=== PATIENT | male | born 1955 | race Caucasian/White ===

== ENCOUNTER 2018-01-22 09:20 | Inpatient (IN) | payer OTHER ==
[~2018-01-22] VITALS: Ht 185.4 cm; Wt 83.2 kg
--- NOTE | ~2018-01-22 | PR ---
[place], [place] PROGRESS NOTE NAME: FANTASMA FREED [facility] #: [id number] UNIT #: [id number] ROOM: [facility] DOCTOR: ALAN ÁLVAREZ MD,VERONA BIRTHDATE: [birth year] DOS: 01/28/2018 SUBJECTIVE: The patient was noted awake and alert this morning, still getting lactulose for his hepatic encephalopathy. He has not been noted any symptoms of chest pain, coughing or sputum expectoration or symptoms of abdominal pain, but not noted any edema, clubbing, was not noted any symptoms of edema. The patient does not have any symptoms or findings of seizures. Remaining systems were reviewed, they were noted all negative. PHYSICAL EXAMINATION: VITAL SIGNS: Normal temperature, respiratory rate 22, heart rate 80, blood pressure 125/74, pulse ox saturation on room air 94% saturation. HEENT: No acute change. The patient was noted with bruising of the skin from previous fall, which has been improving. HEENT: They were noted normal. CARDIOVASCULAR: S1, S2 audible. LUNGS: Noted without wheeze or crackles. ABDOMEN: Soft, nontender. Bowel sounds present. EXTREMITIES: No edema. MUSCULOSKELETAL: Without acute deformities. CENTRAL NERVOUS SYSTEM: Cranial nerves 2-12 intact. LABORATORY DATA: CBC: WBC count 3.8, hemoglobin 12.6, hematocrit 39.0, platelet count 50,000. The ammonia level 79. BMP of the patient noted normal BUN and creatinine. IMPRESSION: 1. The patient who has been currently noted with hyperammonemia secondary to hepatic encephalopathy. 2. Pulmonary nodules, which are noted in upper lung villagomez identified, previously in 05/2017. The patient has been seen by a baseball inspector and repairer as the record become available of patient per Dr. Sharma. The patient was supposed to have a navigational bronchoscopy done and EBUS, bronchoscopy to be done for the upper lung pulmonary nodules. The pulmonary nodules were described in the upper portion of the lung; however, I am not sure the patient ever had any biopsy done so far. 3. The patient with a known history of alcoholic liver cirrhosis with history of past other problem related to his chronic alcohol use and dependence. 4. Debility. 5. Thrombocytopenia secondary to liver cirrhosis. 6. Leukopenia secondary to liver cirrhosis as well. 7. History of nicotine use. PLAN OF MANAGEMENT: At this time, the patient has been improving, currently with current medical management. He would not require any further assessment of the pulmonary nodule during the inpatient. The outpatient assessment has planned for this patient to be done by the baseball inspector and repairer or as an outpatient if patient prefers to get it done through my office. Continue to maximize his oral medical status. Physical therapy has been started. Other plan of management [place], [place] PROGRESS NOTE NAME: FANTASMA FREED UNIT #: [id number] ROOM: [facility] DOCTOR: VERONA HERNANDEZ MD BIRTHDATE: [birth year] care to be continued as ordered. VERONA PHILLIPS MD CM:PNTRANS [id number] VERONA ÁLVAREZ MD 01/28/182024 interface
--- NOTE | ~2018-01-22 | CON ---
[place], [place] REPORT OF CON[facility]ATION [id number] UNIT #: [id number] ROOM: [facility] DOCTOR: ZUHAIR FOURNIER MD BIRTHDATE: [birth year] DOS: 01/29/2018 GASTROINTESTINAL CONSULTATION REPORT HISTORY OF PRESENT ILLNESS: A 62-year-old patient who has presented with history of chronic drinking of half a gallon of vodka per day, falling episode, sustaining multiple hematomas, and has been kept in ICU detoxing and being assisted. He is totally dependent on nursing and medical care at this time. At the time of admission, however, his INR was 1.3, PT was 14. His comprehensive metabolic panel and electrolytes were balanced. Total bilirubin was 2.5. GOT/GPT of 72/35. Alkaline phosphatase 299. ETOH level was 131. Drug screening was negative. His CBC differential was thrombocytopenic at 29 and H and H of 11 and 34 with macrocytic indices. The patient's serum ammonia level has been greater than 100 and he has been given lactulose 4 times a day 30 grams, and despite the fact that he has had severe diarrhea, he is remaining encephalopathic. Finally, his serum ammonia level responded and drops to about 70 and we have been asked for assessment of the patient regarding encephalopathy and serum ammonia concerns. PAST MEDICAL HISTORY: History of chronic alcoholism, degenerative joint disease, essential hypertension, cirrhotic liver, COPD, and seizure disorders. PAST SURGICAL HISTORY: Cervical fusion. SOCIAL HISTORY: Heavy alcohol consumption of half a gallon of vodka per day and nicotine as well. MEDICATIONS: List has been reviewed. ALLERGIES: PENICILLIN. REVIEW OF SYSTEMS: Cannot be obtained from him meaningfully. PHYSICAL EXAMINATION: GENERAL: Status post fall, bedridden, hematomas on bilateral orbits, face, arms, and extremities were noticed. HEENT: Otherwise, head is normocephalic and nontraumatic except hematomas formation as well as left eye. Mouth free of aphthae ulcer or thrush. NECK: Supple. No thyromegaly, no cervical lymphadenopathy. CHEST: Symmetric anatomy, equal expansion. No wheeze, no rhonchi. HEART: Normal sinus rhythm. No gallop, no murmur. ABDOMEN: Obese, soft. No hepato-organomegaly can be elicited. EXTREMITIES: Hematoma subcutaneously on the arm, forearm as well as stasis dermatitis. NEUROLOGIC: Alertness and orientation cannot be assessed. DIAGNOSTIC DATA: Labs reviewed, records reviewed. IMPRESSION: Alcohol-induced cirrhosis, falling episode secondary to encephalopathy. However, all the presentations are secondary to sequelae of [place], [place] REPORT OF CONSULTATION NAME: FANTASMA FREED UNIT #: [id number] ROOM: [facility] DOCTOR: IRLANDA MATIAS,ZUHAIR BIRTHDATE: [birth year] alcoholism including cirrhosis, which we expect in future or at the present time to have ascites fluid, portal hypertension, possible esophageal varicosity, thrombocytopenia, macrocytic anemia, and hyperammonemia, all have been expected. PLAN: At the present time detox and correction of all above is in progress; however, he is extremely hypernatremic, hyperchloremic at 153/126 respectively. D5W and hydration to prevent renal insult in progress. At this stage, since his ammonia level is not responding to lactulose even maximal dose, we are going to start him on Xifaxan 550 mg 1 b.i.d. to see if he can achieve further better ammonia level. On the other hand, we do not need to follow serum ammonia daily because clinically it does not make any difference, we only need periodic rarely and if it is needed weekly. As long as the patient is clinically responding to orientation and lack of encephalopathy, then we are safe. Diet ad blanca. His H and H have been fortunately stable. His thrombocytopenia of severe degree is gradually improving from 20s to 30s. Continue supportive management. ZUHAIR FOURNIER MD CM:CONSTR:REPORT OF CONSULTATION 1929 01/30/18 0455 interface
--- NOTE | ~2018-01-22 | PR ---
[place], [place] PROGRESS NOTE [id number] #: [id number] ROOM: 409 DOCTOR: ALAN ÁLVAREZ MD,VERONA BIRTHDATE: [birth year] DOS: 01/26/2018 SUBJECTIVE: The patient noted comfortable at this time without any acute distress. He has not been noted any ongoing acute new complaints at the present time. Denies symptoms of coughing, chest pain or sputum expectoration. The patient noted more awake and alert, getting lactulose. Reduction in the ammonia level was noted. He does not have any symptoms of hemoptysis, fever or chills. OBJECTIVE: VITAL SIGNS: Normal temperature, respiratory rate 15, heart rate of 80, blood pressure 130/85, pulse ox saturation on room air 98% saturation. HEENT: No acute change. NECK: Supple. CARDIOVASCULAR: S1, S2 is audible. LUNGS: Without any wheeze or crackles. ABDOMEN: Soft, nontender. Bowel sounds present. EXTREMITIES: No acute edema. IMPRESSION: 1. The patient with hepatic encephalopathy, pancytopenia, which has been improving. The WBC count noted currently normal, platelet count was also resolving. 2. Pulmonary nodules, patient at this time unknown to medical record which has been asked from the primary care attending was still pending. PLAN OF MANAGEMENT: Continue the patient's current plan of therapy as in progress. Continue on supportive plan of therapy care and other medical management. Usual care. VERONA PHILLIPS MD CM:JORGE [id number] VERONA ÁLVAREZ MD 02/25/18 0751 interface
--- NOTE | ~2018-01-22 | PR ---
[place], [place] PROGRESS NOTE NAME: FANTASMA FREED UNIT #: [id number] ROOM: 409 DOCTOR: VERONA HERNANDEZ MD BIRTHDATE: [birth year] DOS: 01/25/2018 SUBJECTIVE: The patient has been currently treated with hepatic encephalopathy with the history of advanced liver cirrhosis. He has been noted significant elevation of ammonia level yesterday of 102, started on lactulose with the reduction in the ammonia level noted today at 79. He remains awake this morning without any distress, chest pain, or sputum expectoration. OBJECTIVE: VITAL SIGNS: Normal temperature, respiratory rate 20, heart rate 75, and blood pressure 158/88. The pulse oxygen saturation of the patient noted on room air 94% saturation. HEENT: Examination shows head was atraumatic. Eyes nonicterus. NECK: Supple. CARDIOVASCULAR: S1 and S2 is audible. LUNGS: Clear to auscultation bilaterally except [id number] decreased breath sounds bilaterally. ABDOMEN: Soft and nontender. EXTREMITIES: No edema. LABORATORY DATA: CBC: WBC count 4.7, hemoglobin 12.5, MCV 102, and platelet count 31,000. CMP this morning, normal BUN and creatinine. IMPRESSION: The patient with hepatic encephalopathy. The patient with pancytopenia, liver cirrhosis. The platelet count was noted better from yesterday. There were no signs of active bleeding. Pulmonary nodule predominantly in the upper lung, etiology unclear, medical records primary care physician remains pending. PLAN OF MANAGEMENT: No changes in plan of care from Pulmonary standpoint. Continue to treat the hepatic encephalopathy with current medical treatment. Other supportive therapy, plan of management, care plan and treatment as in progress. [place], [place] PROGRESS NOTE NAME: FANTASMA FREED UNIT #: [id number] ROOM: 409 DOCTOR: VERONA HERNANDEZ MD BIRTHDATE: [birth year] VERONA PHILLIPS MD CM:PNTRANS [id number] VERONA ÁLVAREZ MD 02/25/18 0750 interface
--- NOTE | ~2018-01-22 | PR ---
[place], [place] PROGRESS NOTE NAME: FANTASMA FREED UNIT #: [id number] ROOM: [facility] DOCTOR: ALAN ÁLVAREZ MD,VERONA BIRTHDATE: [birth year] DOS: 01/29/2018 PULMONARY PROGRESS NOTE SUBJECTIVE: The patient has been noted comfortable at this time and participating in physical therapy. There are no symptoms of shortness of breath. Confusion is resolving. Ammonia level is gradually improving with use of lactulose. OBJECTIVE: VITAL SIGNS: Normal temperature, respiratory rate 14, heart rate 82, blood pressure 111/71. Pulse oxygen saturation on room air is 93% saturation. HEENT: No acute change. NECK: Supple. CARDIOVASCULAR: S1, S2 audible. LUNGS: Noted without any wheezing or crackles. ABDOMEN: Soft, nontender. EXTREMITIES: No edema. IMPRESSION: 1. Resolving hepatic encephalopathy with stable respiratory status. 2. Bilateral upper lung pulmonary nodules. The patient will need further investigation as an outpatient by his primary feather mixer. PLAN OF MANAGEMENT: Continue maximizing the medical management of the hepatic encephalopathy. Monitor ammonia level. Continue physical therapy, other plan of care and treatment. VERONA PHILLIPS MD CM:JORGE [id number] VERONA ÁLVAREZ MD 01/29/18 1320 interface
--- NOTE | ~2018-01-22 | CON ---
[place], [place] REPORT OF CONSULTATION NAME: FANTASMA FREED UNIT #: [id number] ROOM: [facility] DOCTOR: VERONA HERNANDEZ MD BIRTHDATE: [birth year] DOS: 01/24/2018 PULMONARY CONSULTATION EVALUATION AND MANAGEMENT CONSULTATION REQUESTED BY: Hospitalist Service. REASON FOR CONSULTATION: Assessment of current pulmonary nodules. HISTORY OF PRESENT ILLNESS: This is a 62-year-old white male who has been noted with frequent fall at home. The patient has been admitted to the hospital on 01/22/2018. He has been admitted to the hospital after a fall. The patient fell forward as well as also noted previous multiple falls at home. EMS called. The patient brought to the hospital. He has been noted drinking half gallon of vodka per day. He has been admitted to the hospital. The patient currently treated for the alcohol withdrawal and as well as encephalopathy as well related to the alcohol withdrawal. The patient has been denying any symptoms of shortness of breath, coughing, wheezing or chest pain. Denies symptoms of hemoptysis. He had a CT scan of the chest that was done this morning reported with findings of pulmonary nodules. I was asked to see the patient for that reason. REVIEW OF SYSTEMS: CONSTITUTIONAL: Fatigue and tiredness noted without any symptoms of fever or chills. EYES: Denies any burning, redness, or tenderness. EARS, NOSE, THROAT SYMPTOMS: Denies sore throat, hoarseness, otalgia, postnasal drainage or epistaxis. CARDIOVASCULAR: Denies angina pain, edema of the pain of the lower extremities. GASTROINTESTINAL: Denies any dysphagia, nausea, vomiting, diarrhea, abdominal pain, hematemesis, melena, or hematochezia. GENITOURINARY: No dysuria, suprapubic pain, hematuria. MUSCULOSKELETAL: Denies joint pain, redness, or tenderness. SKIN: Noted bruising on the face as well as in the side of the back from recent several falls. CENTRAL NERVOUS SYSTEM: Noted with the difficulty of keeping balance for this patient at home frequent falls, but there were no focal neurologic deficits reported. Denies any tingling sensation of the extremities. Remaining review of the patient, they were noted limited, but negative. PAST MEDICAL HISTORY: 1. History of pulmonary nodule, which was known in 3 years, has been assessed by a physician and also followed up by primary care physician, Dr. Durham in [place], [place]. 2. History of chronic alcohol dependence. 3. History of degenerative arthritis of the cervical spine. 4. Essential hypertension. 5. History of liver cirrhosis, most likely secondary to chronic alcohol dependence. 6. History of COPD. 7. History of seizures. [place], [place] REPORT OF CONSULTATION NAME: FANTASMA FREED UNIT #: [id number] ROOM: [facility] DOCTOR: ALAN ÁLVAREZ MD,[facility] BIRTHDATE: [birth year] PAST SURGICAL HISTORY: Reported as a cervical fusion surgery. SOCIAL HISTORY: The patient lives by himself at home. He has been noted with history of chronic alcohol use. 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 FAMILY HISTORY: Reported as noncontributory by the patient. HOME MEDICATIONS: Listed at time of admission, Proventil HFA, doxepin, Lexapro, Feosol, Lasix, gabapentin, lactulose, Keppra, melatonin, Lopressor, Remeron, multivitamin, Protonix, thiamine, Spiriva, and vitamin B complex. DRUG ALLERGY. TO PENICILLINS. PHYSICAL EXAMINATION: GENERAL: This is a 62-year-old obese patient who has been currently lying in the bed, appears to be awake, alert, oriented, and able to give history. VITAL SIGNS: Height of 6 feet 1 inch, weight of 183 pounds, BMI 24. Temperature noted normal in the last 48 hours, respiratory rate range between 18-20. The heart rate ranging between 120 on admission, currently 80, blood pressure 146-91-160/91. Intake of 800, the output of 1.204 liters. Pulse oxygen saturation on room air was noted at rest is 96-98% saturation. HEENT: The patient noted with some areas of current acute injury bruising noted in the facial area for this patient. There was no open wound. Head was noted atraumatic. Eyes were noted mild icterus. Oral mucosa was moist. CARDIOVASCULAR: S1, S2 audible. LUNGS: The patient was noted without any wheezing or crackles at the present time. ABDOMEN: Mild distention was noted. There was no tenderness. Bowel sounds present. EXTREMITIES: Without any acute edema. VISIBLE SKIN: Beside the bruising which are noted in the face and the right posterior chest wall bruise noted. No open area. No rashes or lesions. MUSCULOSKELETAL: No deformities. CENTRAL NERVOUS SYSTEM: Grossly intact. LABORATORY DATA: CMP on 01/22/2018 on admission noted with normal BUN and creatinine and other electrolytes. Bilirubin noted 2.5, albumin 2.8, AST 72, alkaline phosphatase of 298 and alcohol level noted at that time elevated at 131. The CBC on 01/22/2018, WBC count 3.7, hemoglobin 11.3, hematocrit 34.6, platelet count of 29,000. The MCV noted 102. Urine drug screen on admission was noted as negative. CT scan of head without contrast does not show acute intracranial abnormalities. Low attenuation of white matter noted bilaterally. Age indeterminate commonly seen in the small vessel ischemic changes. CMP yesterday, normal BUN and creatinine. Lipid noted mildly elevated at 501. CBC yesterday, hemoglobin 10, hematocrit 31, WBC count 2.8 and platelet count of 21,000. CBC of this morning, WBC count 2.9, hemoglobin 11.5, hematocrit 34.7, platelet count 23,000. BMP this morning, the patient, normal BUN and creatinine and other electrolytes. [place], [place] REPORT OF CONSULTATION NAME: FANTASMA FREED UNIT #: [id number] ROOM: [facility] DOCTOR: ALAN ÁLVAREZ MD,[facility] BIRTHDATE: [birth year] IMAGING STUDIES: Chest x-ray that was done this morning was suggestive of evidence of pulmonary nodule upper lungs. CT scan of the chest were suggestive for further assessment. The CT scan of the chest that was done without contrast reviewed evidence of several pulmonary nodules, which are noted mostly in the upper portion of the lungs bilaterally appears to be mostly smooth. Changes of centrilobular emphysema was noted in the upper lung as well. A small area of atelectasis noted in the right lower lung with minimal pleural effusions. There was no evidence of consolidation. Mediastinal structure was also reviewed does not show any significant abnormal pathological lymphadenopathy. IMPRESSION: 1. The patient who has been currently admitted to the hospital after a fall with alcohol intoxication and frequent fall at home related to alcohol use or peripheral neuropathy or drug interaction with alcohol use would be likely cause. 2. The patient's pancytopenia, most likely due to underlying liver cirrhosis. 3. Bilateral pulmonary nodules, which were noted in the upper as per history described by the patient chronic, but I do not medical record to review for the patient. Prior to initiating further workup, the medical records will be obtained from the office of primary care physician or other physician who has assessed the patient's current pulmonary nodules. The differential of sarcoidosis would be considered with hypersensitive pneumonitis; however, malignancy remains in consideration if the nodules noted currently new with history of longstanding tobacco use. 4. Small pleural fluid was also noted related to ongoing current illness. There were no signs of acute sepsis or pneumonia. 5. Abnormal liver function secondary to the current liver cirrhosis. 6. Alcohol withdrawal, currently treated appropriately with the medication without any signs of agitation and disorientation at the present time. 7. History of seizure without any seizure activity. PLAN OF MANAGEMENT: Obtain the medical record from the office of primary care physician. Monitor pancytopenia. There was no active bleeding or severe anemia requiring any blood transfusion at the present time. GI consultation might be beneficial. Tobacco cessation counseling was done with the patient. Bronchodilator to help mobilize secretions. Avoid excessive sedation for this patient. In case of excessive sedation, the patient might require intubation and mechanical ventilation. Most of the medication has been resumed. Management of alcohol withdrawal symptoms according to the needs. Usual care, other supportive plan of management and therapies. The patient might require detoxification from the alcohol once discharged from the hospital or rehabilitation placed by the inpatient and outpatient. After viewing the medical record, which will be obtained from the office of primary care physician tomorrow, further recommendation will be added or suggested after that. The assessment and management has been discussed with primary care attending, ____. [place], [place] REPORT OF CONSULTATION NAME: FANTASMA FREED UNIT #: [id number] ROOM: [facility] DOCTOR: VERONA HERNANDEZ MD BIRTHDATE: [birth year] VERONA PHILLIPS MD CM:CONSTR:REPORT OF CONSULTATION 1441 01/25/18 0213 interface
--- NOTE | ~2018-01-22 | PR ---
[place], [place] PROGRESS NOTE NAME: FANTASMA FREED UNIT #: [id number] ROOM: [facility] DOCTOR: ALAN ÁLVAREZ MD,VERONA BIRTHDATE: [birth year] DOS: 01/30/2018 SUBJECTIVE: The patient has been noted comfortable at this time, resting in the bed, still noted with hepatic encephalopathy as well. He has been complaining of excessive urination and diarrhea. Denies symptoms of chest pain or hemoptysis or other acute symptoms. OBJECTIVE: VITAL SIGNS: For the patient, which has been recorded showed the temperature noted as normal, respiratory rate 12, heart rate 73, blood pressure 118/63. Pulse ox saturation on room air 96% saturation. HEENT: No acute change. NECK: Supple. CARDIOVASCULAR: S1, S2 is audible. LUNGS: Without any wheezes or crackles. ABDOMEN: Soft. EXTREMITIES: Without any acute edema. IMPRESSION: Bilateral pulmonary nodules in the upper lung at this time. Possibility of sarcoidosis, other abnormalities with pancytopenia, liver cirrhosis. Other medical problems including metabolic encephalopathy. PLAN OF MANAGEMENT: No changes in the plan for the patient from the pulmonary standpoint. Continue current therapy, plan of management as in progress. Further workup as an outpatient for this patient to be done by the primary security site supervisor in [place], [place]. Pulmonary will sign off the day. There were no acute active respiratory symptoms ongoing for the patient requiring further assessment. VERONA PHILLIPS MD CM:PNTRANS [id number] VERONA ÁLVAREZ MD 01/30/18 1546 interface
--- NOTE | ~2018-01-22 | PR ---
[place], [place] PROGRESS NOTE NAME: FANTASMA FREED UNIT #: [id number] ROOM: [facility] DOCTOR: ALAN ÁLVAREZ MD,VERONA BIRTHDATE: [birth year] DOS: 01/27/2018 SUBJECTIVE: The patient noted comfortable at this time, resting on the bed without any acute distress. He has been participating with physical therapy. Shortness of breath remains stable. MENTAL STATUS: The patient was also noted adequate and the patient able to understand the question and answer them quickly. The medical record from primary care attending for the patient office was still not received and pending. OBJECTIVE: VITAL SIGNS: Normal temperature, respiratory rate 14, heart rate of 84 and blood pressure 124/84. Pulse ox saturation on room air 95% saturation. HEENT: No acute change. NECK: Supple. CARDIOVASCULAR: S1, S2 audible. LUNGS: Without any wheeze or crackles. ABDOMEN: Soft, nontender. EXTREMITIES: No edema. IMPRESSION: 1. The patient with hepatic encephalopathy with cirrhosis of the liver, pancytopenia, bilateral pulmonary nodules for this patient predominantly in the upper lungs 2. Coagulopathy secondary to liver dysfunction. 3. Thrombocytopenia, resolving. WBC count was currently noted as normal. PLAN OF TREATMENT: No changes in the plan of care at this time. Await for the results of the patient for the assessment pulmonary nodules. In addition, treatment changes or recommendation be necessary will be done after review of the medical records when becomes available from primary care physician's office. VERONA PHILLIPS MD CM:PNTRANS [id number] VERONA ÁLVAREZ MD 01/27/18 1220 interface
[2018-01-22 10:36] VITALS: BP 159/86
[2018-01-22 10:45] VITALS: BP 159/86
[2018-01-22] MEDS ORDERED: FEROSUL325 MG PO (11:00)
[2018-01-22] MEDS ORDERED: LEXAPRO20 MG PO (11:00)
[2018-01-22] MEDS ORDERED: KEPPRA500 MG PO (11:01)
[2018-01-22] MEDS ORDERED: GABAPENTIN400 MG PO (11:01)
[2018-01-22] MEDS ORDERED: FUROSEMIDE20 M1 PO (11:01)
[2018-01-22] MEDS ORDERED: LOPRESSOR25 MG PO (11:02)
[2018-01-22] MEDS ORDERED: MIRTAZAPINE15 M2 PO (11:02)
[2018-01-22] MEDS ORDERED: PANTOPRAZOLE SO40 MG PO (11:03)
[2018-01-22] MEDS ORDERED: VITAMIN B150 MG PO (11:04)
[2018-01-22] MEDS ORDERED: VITAMIN B COMP1 EAC1 PO (11:04)
[2018-01-22] MEDS ORDERED: DOXEPIN HCL75 MG PO (11:04)
[2018-01-22] MEDS ORDERED: CENTRUM SILVER1 EACH PO (11:05)
[2018-01-22] MEDS ORDERED: MELATONIN1 MG PO (11:06)
[2018-01-22] MEDS ORDERED: PROVENTIL HFA6.7 GM INH (11:06)
[2018-01-22] MEDS ORDERED: LACTULOSE10 GM/15 M PO (11:07)
[2018-01-22] MEDS ORDERED: SPIRIVA18 MCG PO (11:08)
[2018-01-22 11:20] LABS: HEMATOCRIT 34.6 % (42.0-52.0); HEMOGLOBIN 11.3 g/dl (14.0-18.0); MEAN CELL VOLUME 102.1 fl (80.0-94.0); MEAN CORPUSCULAR HGB 33.3 pg (27.0-31.0); MEAN CORPUSCULAR HGB CONC 32.7 g/dl (33.0-37.0); MEAN PLATELET VOLUME 10.9 fl (9.6-12.3); RED BLOOD COUNT 3.39 10*6/uL (4.50-5.90); RED CELL DISTRI WIDTH 17.9 % (0-14.5); WHITE BLOOD COUNT 3.7 10*3/uL (4.8-10.8)
[2018-01-22 11:26] LABS: INTERNATIONAL NORM RATIO 1.3 (2.0-3.5)
[2018-01-22 11:32] LABS: ALBUMIN 2.8 gm/dl (3.1-4.5); ALKALINE PHOSPHATASE 298 U/L (45-117); BUN 11 mg/dl (7-24); CHLORIDE 110 mmol/L (98-107); POTASSIUM 4.2 mmol/L (3.5-5.1); SGOT/AST 72 IU/L (3-35); SGPT/ALT 35 U/L (12-78); SODIUM 143 mmol/L (136-145); TOTAL PROTEIN 8.2 gm/dL (6.4-8.2)
[2018-01-22 11:40] LABS: TOTAL CELLS COUNTED 100 #CELLS
[2018-01-22 11:41] LABS: PLATELET SUFFICIENCY LOW (NORMAL)
[2018-01-22 11:45] LABS: PLATELET COUNT AUTOMATED 29 10*3/uL (130-400)
[2018-01-22 12:00] VITALS: BP 160/80
[2018-01-22 16:00] VITALS: BP 150/73
[2018-01-22 20:00] VITALS: BP 105/55
[2018-01-22 22:24] LABS: BILIRUBIN NEGATIVE (NEGATIVE); BLOOD NEGATIVE (NEGATIVE); CLARITY CLEAR (CLEAR); COLOR YELLOW (YELLOW); GLUCOSE NEGATIVE (NEGATIVE); KETONE TRACE (NEGATIVE); LEUKO ESTERASE NEGATIVE (NEGATIVE); NITRITE NEGATIVE (NEGATIVE); SPECIFIC GRAVITY 1.015 (1.005-1.030)
[2018-01-22 22:32] LABS: URINE AMPHETAMINES < 1000 (1000ng/ml); URINE BARBITURATES < 200 (200ng/ml); URINE BENZODIAZEPINES < 200 (200ng/ml); URINE CANNABINOIDS (THC) < 50 (50ng/ml); URINE COCAINE < 300 (300ng/ml); URINE METHADONE < 300 (300ng/ml); URINE OPIATES < 300 (300ng/ml); URINE PHENCYCLIDINE < 25 (25ng/ml)
[2018-01-22 22:51] LABS: RBC 0-2 rbc/hpf (0-2); WBC 0-2 wbc/hpf (0-5)
[2018-01-23] VITALS: BP 124/68
[2018-01-23 04:00] VITALS: BP 143/87
[2018-01-23 06:07] LABS: HEMOGLOBIN 10.5 g/dl (14.0-18.0); MEAN CORPUSCULAR HGB 34.2 pg (27.0-31.0); MEAN CORPUSCULAR HGB CONC 33.9 g/dl (33.0-37.0); RED BLOOD COUNT 3.07 10*6/uL (4.50-5.90); RED CELL DISTRI WIDTH 17.3 % (0-14.5); WHITE BLOOD COUNT 2.8 10*3/uL (4.8-10.8)
[2018-01-23 06:25] LABS: ALBUMIN 2.5 gm/dl (3.1-4.5); ALKALINE PHOSPHATASE 267 U/L (45-117); BUN 10 mg/dl (7-24); CHLORIDE 107 mmol/L (98-107); CREATININE 0.81 mg/dL (0.70-1.30); LIPASE 501 U/L (73-393); PHOSPHOROUS 2.2 mg/dL (2.5-4.9); POTASSIUM 3.7 mmol/L (3.5-5.1); SGOT/AST 64 IU/L (3-35); SGPT/ALT 29 U/L (12-78); SODIUM 139 mmol/L (136-145); TOTAL PROTEIN 7.1 gm/dL (6.4-8.2)
[2018-01-23 06:34] LABS: ATYPICAL LYMPHS 1 % (0-0); TOTAL CELLS COUNTED 100 #CELLS
[2018-01-23 06:35] LABS: PLATELET SUFFICIENCY LOW (NORMAL); ROULEAUX SLIGHT
[2018-01-23 06:36] LABS: PLATELET COUNT AUTOMATED 21 10*3/uL (130-400)
[2018-01-23 07:11] LABS: VITAMIN D, 25-HYDROXY 23.4 ng/mL (30-100)
[2018-01-23 08:00] VITALS: BP 148/98
[2018-01-23 12:00] VITALS: BP 157/85
[2018-01-23 16:00] VITALS: BP 160/91
[2018-01-23 20:00] VITALS: BP 134/93
[2018-01-24] VITALS: BP 163/85
[2018-01-24 04:00] VITALS: BP 142/88
[2018-01-24 06:04] LABS: HEMATOCRIT 34.7 % (42.0-52.0); HEMOGLOBIN 11.5 g/dl (14.0-18.0); MEAN CELL VOLUME 101.8 fl (80.0-94.0); MEAN CORPUSCULAR HGB 33.7 pg (27.0-31.0); MEAN CORPUSCULAR HGB CONC 33.1 g/dl (33.0-37.0); MEAN PLATELET VOLUME 12.4 fl (9.6-12.3); RED BLOOD COUNT 3.41 10*6/uL (4.50-5.90); RED CELL DISTRI WIDTH 16.8 % (0-14.5); WHITE BLOOD COUNT 2.9 10*3/uL (4.8-10.8)
[2018-01-24 06:17] LABS: BUN 8 mg/dl (7-24); CHLORIDE 109 mmol/L (98-107); CREATININE 0.81 mg/dL (0.70-1.30); POTASSIUM 3.8 mmol/L (3.5-5.1); SODIUM 138 mmol/L (136-145)
[2018-01-24 06:28] LABS: BASOPHILS 1 % (0-1); PLATELET SUFFICIENCY LOW (NORMAL); ROULEAUX SLIGHT; TOTAL CELLS COUNTED 100 #CELLS
[2018-01-24 06:30] LABS: PLATELET COUNT AUTOMATED 23 10*3/uL (130-400)
[2018-01-24 08:00] VITALS: BP 152/86
[2018-01-24 12:00] VITALS: BP 146/91
[2018-01-24 16:00] VITALS: BP 152/81
[2018-01-24 20:03] VITALS: BP 152/81
[2018-01-25] VITALS: BP 150/90
[2018-01-25 04:05] VITALS: BP 148/93
[2018-01-25 06:17] LABS: HEMATOCRIT 37.8 % (42.0-52.0); HEMOGLOBIN 12.5 g/dl (14.0-18.0); MEAN CELL VOLUME 102.2 fl (80.0-94.0); MEAN CORPUSCULAR HGB 33.8 pg (27.0-31.0); MEAN CORPUSCULAR HGB CONC 33.1 g/dl (33.0-37.0); MEAN PLATELET VOLUME 11.8 fl (9.6-12.3); RED CELL DISTRI WIDTH 17.2 % (0-14.5); WHITE BLOOD COUNT 4.7 10*3/uL (4.8-10.8)
[2018-01-25 06:18] LABS: ALBUMIN 2.7 gm/dl (3.1-4.5); ALKALINE PHOSPHATASE 306 U/L (45-117); BUN 10 mg/dl (7-24); CHLORIDE 110 mmol/L (98-107); CREATININE 0.83 mg/dL (0.70-1.30); POTASSIUM 3.8 mmol/L (3.5-5.1); SGOT/AST 60 IU/L (3-35); SGPT/ALT 36 U/L (12-78); SODIUM 142 mmol/L (136-145); TOTAL PROTEIN 7.9 gm/dL (6.4-8.2)
[2018-01-25 06:22] LABS: PLATELET COUNT AUTOMATED 31 10*3/uL (130-400)
[2018-01-25 07:11] LABS: BASOPHILS 1 % (0-1); PLATELET SUFFICIENCY LOW (NORMAL); POLYCHROMASIA SLIGHT; TOTAL CELLS COUNTED 100 #CELLS
[2018-01-25 08:00] VITALS: BP 158/88
[2018-01-25 11:35] VITALS: BP 143/89
[2018-01-25 16:00] VITALS: BP 127/82
[2018-01-25 20:00] VITALS: BP 100/65
[2018-01-26] VITALS: BP 120/75
[2018-01-26 04:00] VITALS: BP 130/85
[2018-01-26 04:57] LABS: BUN 16 mg/dl (7-24); CHLORIDE 113 mmol/L (98-107); CREATININE 1.14 mg/dL (0.70-1.30); POTASSIUM 3.6 mmol/L (3.5-5.1); SODIUM 146 mmol/L (136-145)
[2018-01-26 05:48] LABS: HEMATOCRIT 38.6 % (42.0-52.0); HEMOGLOBIN 12.6 g/dl (14.0-18.0); MEAN CELL VOLUME 103.8 fl (80.0-94.0); MEAN CORPUSCULAR HGB 33.9 pg (27.0-31.0); MEAN CORPUSCULAR HGB CONC 32.6 g/dl (33.0-37.0); MEAN PLATELET VOLUME 10.2 fl (9.6-12.3); RED BLOOD COUNT 3.72 10*6/uL (4.50-5.90); RED CELL DISTRI WIDTH 17.4 % (0-14.5); WHITE BLOOD COUNT 5.4 10*3/uL (4.8-10.8)
[2018-01-26 06:02] LABS: PLATELET COUNT AUTOMATED 48 10*3/uL (130-400)
[2018-01-26 06:47] LABS: PLATELET SUFFICIENCY LOW (NORMAL); TOTAL CELLS COUNTED 100 #CELLS
[2018-01-26 08:00] VITALS: BP 105/81
[2018-01-26 12:00] VITALS: BP 96/56
[2018-01-26 16:00] VITALS: BP 106/63
[2018-01-26 20:00] VITALS: BP 98/74
[2018-01-27] VITALS: BP 119/69
[2018-01-27 04:00] VITALS: BP 110/80
[2018-01-27 05:47] LABS: BASO # 0.1 10*3/uL (0.0-0.1); EOS # 0.1 10*3/uL (0.0-0.4); EOS % 2.5 % (1.0-4.0); HEMATOCRIT 37.5 % (42.0-52.0); HEMOGLOBIN 12.5 g/dl (14.0-18.0); LYMPH # 0.9 10*3/uL (1.3-4.4); LYMPH % 17.2 % (27.0-41.0); MEAN CORPUSCULAR HGB 34.3 pg (27.0-31.0); MEAN CORPUSCULAR HGB CONC 33.3 g/dl (33.0-37.0); MONO # 0.6 10*3/uL (0.1-1.0); MONO % 11.8 % (3.0-9.0); NEUT # 3.5 10*3/uL (2.3-7.9); NEUT % 67.3 % (47.0-73.0); PLATELET COUNT AUTOMATED 54 10*3/uL (130-400); RED BLOOD COUNT 3.64 10*6/uL (4.50-5.90); RED CELL DISTRI WIDTH 17.6 % (0-14.5); WHITE BLOOD COUNT 5.2 10*3/uL (4.8-10.8)
[2018-01-27 05:56] LABS: BUN 19 mg/dl (7-24); CHLORIDE 116 mmol/L (98-107); CREATININE 1.16 mg/dL (0.70-1.30); POTASSIUM 3.7 mmol/L (3.5-5.1); SODIUM 146 mmol/L (136-145)
[2018-01-27 05:57] LABS: PHOSPHOROUS 3.6 mg/dL (2.5-4.9)
[2018-01-27 06:22] LABS: INTERNATIONAL NORM RATIO 1.3 (2.0-3.5)
[2018-01-27 08:00] VITALS: BP 124/84
[2018-01-27 16:00] VITALS: BP 128/77
[2018-01-27 20:00] VITALS: BP 110/60
[2018-01-28 04:30] LABS: BUN 21 mg/dl (7-24); CHLORIDE 119 mmol/L (98-107); POTASSIUM 3.5 mmol/L (3.5-5.1); SODIUM 148 mmol/L (136-145)
[2018-01-28 06:18] LABS: BASO % 0.8 % (0.0-1.0); EOS # 0.1 10*3/uL (0.0-0.4); EOS % 2.6 % (1.0-4.0); HEMOGLOBIN 12.6 g/dl (14.0-18.0); LYMPH # 0.7 10*3/uL (1.3-4.4); LYMPH % 19.1 % (27.0-41.0); MEAN CELL VOLUME 104.8 fl (80.0-94.0); MEAN CORPUSCULAR HGB 33.9 pg (27.0-31.0); MEAN CORPUSCULAR HGB CONC 32.3 g/dl (33.0-37.0); MEAN PLATELET VOLUME 11.1 fl (9.6-12.3); MONO # 0.6 10*3/uL (0.1-1.0); MONO % 14.7 % (3.0-9.0); NEUT # 2.4 10*3/uL (2.3-7.9); NEUT % 62.5 % (47.0-73.0); PLATELET COUNT AUTOMATED 50 10*3/uL (130-400); RED BLOOD COUNT 3.72 10*6/uL (4.50-5.90); RED CELL DISTRI WIDTH 17.9 % (0-14.5); WHITE BLOOD COUNT 3.8 10*3/uL (4.8-10.8)
[2018-01-28 08:00] VITALS: BP 125/74
[2018-01-28 12:00] VITALS: BP 104/68
[2018-01-28 16:00] VITALS: BP 120/77
[2018-01-28 20:00] VITALS: BP 133/82
[2018-01-29] VITALS: BP 124/73
[2018-01-29 05:49] LABS: BUN 19 mg/dl (7-24); CHLORIDE 125 mmol/L (98-107); POTASSIUM 3.8 mmol/L (3.5-5.1); SODIUM 152 mmol/L (136-145)
[2018-01-29 05:59] LABS: BASO % 0.8 % (0.0-1.0); EOS # 0.1 10*3/uL (0.0-0.4); HEMATOCRIT 40.7 % (42.0-52.0); HEMOGLOBIN 12.9 g/dl (14.0-18.0); LYMPH # 0.8 10*3/uL (1.3-4.4); LYMPH % 16.4 % (27.0-41.0); MEAN CORPUSCULAR HGB 33.6 pg (27.0-31.0); MEAN CORPUSCULAR HGB CONC 31.7 g/dl (33.0-37.0); MEAN PLATELET VOLUME 11.4 fl (9.6-12.3); MONO % 19.8 % (3.0-9.0); NEUT # 3.1 10*3/uL (2.3-7.9); NEUT % 60.6 % (47.0-73.0); RED BLOOD COUNT 3.84 10*6/uL (4.50-5.90); RED CELL DISTRI WIDTH 18.1 % (0-14.5); WHITE BLOOD COUNT 5.1 10*3/uL (4.8-10.8)
[2018-01-29 06:26] LABS: PLATELET COUNT AUTOMATED 67 10*3/uL (130-400)
[2018-01-29 08:00] VITALS: BP 111/71
[2018-01-29 16:00] VITALS: BP 155/93
[2018-01-29 16:06] LABS: BUN 18 mg/dl (7-24); CHLORIDE 126 mmol/L (98-107); CREATININE 1.14 mg/dL (0.70-1.30); POTASSIUM 3.9 mmol/L (3.5-5.1); SODIUM 153 mmol/L (136-145)
[2018-01-29 20:00] VITALS: BP 131/71
[2018-01-30] VITALS: BP 100/60
[2018-01-30 04:00] VITALS: BP 100/52
[2018-01-30 05:28] LABS: BUN 17 mg/dl (7-24); CHLORIDE 123 mmol/L (98-107); CREATININE 1.04 mg/dL (0.70-1.30); POTASSIUM 3.6 mmol/L (3.5-5.1); SODIUM 149 mmol/L (136-145)
[2018-01-30 06:10] LABS: HEMATOCRIT 40.5 % (42.0-52.0); HEMOGLOBIN 12.8 g/dl (14.0-18.0); MEAN CELL VOLUME 106.9 fl (80.0-94.0); MEAN CORPUSCULAR HGB 33.8 pg (27.0-31.0); MEAN CORPUSCULAR HGB CONC 31.6 g/dl (33.0-37.0); MEAN PLATELET VOLUME 12.6 fl (9.6-12.3); PLATELET COUNT AUTOMATED 66 10*3/uL (130-400); RED BLOOD COUNT 3.79 10*6/uL (4.50-5.90); RED CELL DISTRI WIDTH 17.8 % (0-14.5); WHITE BLOOD COUNT 4.5 10*3/uL (4.8-10.8)
[2018-01-30 06:40] LABS: BASOPHILS 1 % (0-1); PLATELET SUFFICIENCY LOW (NORMAL); TOTAL CELLS COUNTED 100 #CELLS
[2018-01-30 08:00] VITALS: BP 100/53
[2018-01-30 12:00] VITALS: BP 118/66
[2018-01-30 16:00] VITALS: BP 124/81
[2018-01-30 20:00] VITALS: BP 128/79
[2018-01-31] VITALS: BP 103/60
[2018-01-31 04:00] VITALS: BP 94/69
[2018-01-31 06:15] LABS: HEMOGLOBIN 11.9 g/dl (14.0-18.0); MEAN CELL VOLUME 104.8 fl (80.0-94.0); MEAN CORPUSCULAR HGB 33.7 pg (27.0-31.0); MEAN CORPUSCULAR HGB CONC 32.2 g/dl (33.0-37.0); MEAN PLATELET VOLUME 11.1 fl (9.6-12.3); PLATELET COUNT AUTOMATED 52 10*3/uL (130-400); RED BLOOD COUNT 3.53 10*6/uL (4.50-5.90); RED CELL DISTRI WIDTH 16.8 % (0-14.5); WHITE BLOOD COUNT 3.6 10*3/uL (4.8-10.8)
[2018-01-31 06:25] LABS: BUN 9 mg/dl (7-24); CHLORIDE 114 mmol/L (98-107); CREATININE 0.93 mg/dL (0.70-1.30); POTASSIUM 3.5 mmol/L (3.5-5.1); SODIUM 140 mmol/L (136-145)
[2018-01-31 06:52] LABS: PLATELET SUFFICIENCY LOW (NORMAL); TOTAL CELLS COUNTED 100 #CELLS
[2018-01-31 08:00] VITALS: BP 105/72
[2018-01-31 12:00] VITALS: BP 106/76
[2018-01-31 16:00] VITALS: BP 111/60
[2018-01-31 20:00] VITALS: BP 106/55
[2018-02-01] VITALS (7 sets, daily range): BP systolic 80–135; BP diastolic 58–76
[2018-02-01 05:49] LABS: HEMATOCRIT 34.7 % (42.0-52.0); HEMOGLOBIN 11.5 g/dl (14.0-18.0); MEAN CELL VOLUME 102.4 fl (80.0-94.0); MEAN CORPUSCULAR HGB 33.9 pg (27.0-31.0); MEAN CORPUSCULAR HGB CONC 33.1 g/dl (33.0-37.0); MEAN PLATELET VOLUME 12.3 fl (9.6-12.3); PLATELET COUNT AUTOMATED 61 10*3/uL (130-400); RED BLOOD COUNT 3.39 10*6/uL (4.50-5.90); RED CELL DISTRI WIDTH 16.6 % (0-14.5); WHITE BLOOD COUNT 3.3 10*3/uL (4.8-10.8)
[2018-02-01 05:57] LABS: BUN 9 mg/dl (7-24); CHLORIDE 115 mmol/L (98-107); CREATININE 0.95 mg/dL (0.70-1.30); POTASSIUM 3.4 mmol/L (3.5-5.1); SODIUM 143 mmol/L (136-145)
[2018-02-01 07:09] LABS: BASOPHILS 3 % (0-1); PLATELET SUFFICIENCY LOW (NORMAL); TOTAL CELLS COUNTED 100 #CELLS
[2018-02-01 07:10] LABS: ROULEAUX SLIGHT
[2018-02-02] VITALS: BP 104/60
[2018-02-02 06:02] LABS: HEMATOCRIT 34.1 % (42.0-52.0); HEMOGLOBIN 11.3 g/dl (14.0-18.0); MEAN CELL VOLUME 102.4 fl (80.0-94.0); MEAN CORPUSCULAR HGB 33.9 pg (27.0-31.0); MEAN CORPUSCULAR HGB CONC 33.1 g/dl (33.0-37.0); MEAN PLATELET VOLUME 11.6 fl (9.6-12.3); PLATELET COUNT AUTOMATED 56 10*3/uL (130-400); RED BLOOD COUNT 3.33 10*6/uL (4.50-5.90); RED CELL DISTRI WIDTH 16.5 % (0-14.5); WHITE BLOOD COUNT 3.4 10*3/uL (4.8-10.8)
[2018-02-02 06:13] LABS: BUN 8 mg/dl (7-24); CHLORIDE 115 mmol/L (98-107); CREATININE 0.78 mg/dL (0.70-1.30); PHOSPHOROUS 2.6 mg/dL (2.5-4.9); POTASSIUM 3.8 mmol/L (3.5-5.1); SODIUM 142 mmol/L (136-145)
[2018-02-02 06:34] LABS: PLATELET SUFFICIENCY LOW (NORMAL); ROULEAUX SLIGHT; TOTAL CELLS COUNTED 100 #CELLS
[2018-02-02 08:00] VITALS: BP 124/78
[2018-02-02] MEDS ORDERED: XIFAXAN550 MG PO (11:47)
[2018-02-02] MEDS ORDERED: OXYCODONE HCL5 M1 PO (11:51)
[2018-02-02 11:59] VITALS: BP 122/83
== END 2018-02-02 13:05 | disposition home or self-care (01) | DRG 432 ==
LOC: 4E 09:20 → ICCU 09:20 → 4E 02-01 16:35
PROVIDERS: Internal Medicine; Student in an Organized Health Care Education/Training Program
DX: K70.40 Alcoholic hepatic failure without coma (principal); G93.41 Metabolic encephalopathy; E87.0 Hyperosmolality and hypernatremia; F10.232 Alcohol dependence with withdrawal with perceptual disturbance; I85.00 Esophageal varices without bleeding; D61.818 Other pancytopenia; E46 Unspecified protein-calorie malnutrition; K92.1 Melena; E72.20 Disorder of urea cycle metabolism, unspecified; D68.9 Coagulation defect, unspecified; K76.6 Portal hypertension; K70.30 Alcoholic cirrhosis of liver without ascites; S09.90XA Unspecified injury of head, initial encounter; R10.13 Epigastric pain; I10 Essential (primary) hypertension; M54.2 Cervicalgia; G89.29 Other chronic pain; R00.0 Tachycardia, unspecified; E87.8 Other disorders of electrolyte and fluid balance, not elsewhere classified; R74.0 Nonspecific elevation of levels of transaminase and lactic acid dehydrogenase [LDH]; F17.210 Nicotine dependence, cigarettes, uncomplicated; M25.512 Pain in left shoulder; D86.9 Sarcoidosis, unspecified; M19.90 Unspecified osteoarthritis, unspecified site; G40.909 Epilepsy, unspecified, not intractable, without status epilepticus; K21.9 Gastro-esophageal reflux disease without esophagitis; W19.XXXA Unspecified fall, initial encounter; E83.39 Other disorders of phosphorus metabolism; E83.42 Hypomagnesemia; R74.8 Abnormal levels of other serum enzymes; J44.9 Chronic obstructive pulmonary disease, unspecified; R91.8 Other nonspecific abnormal finding of lung field; R73.9 Hyperglycemia, unspecified; D53.9 Nutritional anemia, unspecified; Z71.6 Tobacco abuse counseling; Z98.1 Arthrodesis status; Z88.0 Allergy status to penicillin; Z79.899 Other long term (current) drug therapy; Y93.89 Activity, other specified; Y92.89 Other specified places as the place of occurrence of the external cause; Y99.8 Other external cause status; Z68.24 Body mass index [BMI] 24.0-24.9, adult